=== PATIENT | male | born 1990 | race African-American/Black ===

== ENCOUNTER 2017-09-30 02:37 | Emergency (ER) | payer OTHER | END 2017-09-30 03:10 | disposition home or self-care (01) | LOC: D.ER 02:37 | DX: J30.9 Allergic rhinitis, unspecified (principal); F17.200 Nicotine dependence, unspecified, uncomplicated ==

== ENCOUNTER 2017-09-30 09:49 | Emergency (ER) | payer OTHER | END 2017-09-30 11:00 | disposition home or self-care (01) | LOC: D.ER 09:49 | DX: J30.9 Allergic rhinitis, unspecified (principal); F17.200 Nicotine dependence, unspecified, uncomplicated ==